=== PATIENT | male | born 1950 | race African-American/Black ===

== ENCOUNTER 2018-03-04 10:34 | Emergency (ER) | payer OTHER ==
[~2018-03-04] VITALS: Ht 182.9 cm; Wt 72.7 kg
[2018-03-04 10:45] VITALS: Ht 182.9 cm; Wt 72.7 kg
[2018-03-04] MEDS ORDERED: ROBAXIN500 MG PO (10:47)
[2018-03-04] MEDS ORDERED: OMEPRAZOLE20 M1 (10:47)
[2018-03-04] MEDS ORDERED: CARDIZEM CD300 MG PO (10:48)
[2018-03-04] MEDS ORDERED: ALAVERT10 MG/TAB PO (10:48)
[2018-03-04] MEDS ORDERED: VOLTAREN75 MG PO (10:48)
[2018-03-04] MEDS ORDERED: HYDROCHLOROTHIA25 MG PO (10:49)
[2018-03-04] MEDS ORDERED: CYMBALTA30 MG PO (10:49)
[2018-03-04 11:05] LABS: BASOPHILS 0.1 % (0-2); EOSINOPHILS 0.7 % (0-7); HEMATOCRIT 44.5 % (42.0-54.0); HEMOGLOBIN 15.6 g/dL (13.5-17.5); IMMATURE GRANULOCYTES 0.2 % (0-5); LYMPHOCYTES 13.2 % (15-50); MCH 28.6 pg (26.0-34.0); MCHC 35.1 g/dL (31.0-37.0); MCV 81.7 fL (80.0-100.0); MONOCYTES 12.3 % (2-11); NEUTROPHILS 73.5 % (40-80); PLATELET COUNT 124 10x3/uL (130-400); RBC 5.45 10x6/uL (4.20-6.10); WBC 8.2 10x3/uL (4.8-10.8)
[2018-03-04 11:16] LABS: INR 1.62 (0.85-1.17); PROTIME 18.7 SECONDS (11.6-15.0)
[2018-03-04 11:18] LABS: D-DIMER-QUANTITATIVE 3.46 ug/mLFEU (0.20-0.54)
[2018-03-04 11:22] LABS: ALBUMIN 3.3 g/dL (3.4-5.0); ALKALINE PHOSPHATASE 228 U/L (46-116); ALT (SGPT) 27 U/L (10-68); BILIRUBIN - TOTAL 2.89 mg/dL (0.2-1.3); CALC OSMOLALITY 276 mosm/kg (275-300); CALCIUM 8.9 mg/dL (8.5-10.1); CARBON DIOXIDE 27.6 mmol/L (21.0-32.0); CHLORIDE - SERUM 97 mmol/L (98-107); CREATININE - SERUM 2.2 mg/dL (0.6-1.3); GLUCOSE 96 mg/dL (74-106); POTASSIUM - SERUM 3.8 mmol/L (3.5-5.1); PROTEIN - SERUM 6.9 g/dL (6.4-8.2); SODIUM 134 mmol/L (136-145); UREA NITROGEN 38 mg/dL (7-18); eGFR NON AFRICAN AMERICAN 32 mL/min (90-120)
[2018-03-04 11:34] LABS: CKMB 1.9 U/L (0.0-3.6); CREATINE KINASE 95 UL (21-232); PRO BNP 19338 pg/mL (0-125); TROPONIN-I 0.018 ng/mL (0.000-0.060)
[2018-03-04 15:17] VITALS: BP 120/85
== END 2018-03-04 15:18 | disposition other institution (70) ==
LOC: D.ER 10:34
PROVIDERS: Family Medicine
DX: R79.89 Other specified abnormal findings of blood chemistry (principal); R60.0 Localized edema; R79.1 Abnormal coagulation profile; J90 Pleural effusion, not elsewhere classified; N28.9 Disorder of kidney and ureter, unspecified; R06.02 Shortness of breath

== ENCOUNTER 2018-06-15 17:40 | Emergency (ER) | payer OTHER ==
[~2018-06-15] VITALS: Ht 182.9 cm; Wt 68.2 kg
[~2018-06-15 17:40] MED LIST: ALAVERT10 MG/TAB PO; CARDIZEM CD300 MG PO; CYMBALTA30 MG PO; HYDROCHLOROTHIA25 MG PO; OMEPRAZOLE20 M1; ROBAXIN500 MG PO; VOLTAREN75 MG PO
[2018-06-15 17:44] VITALS: Ht 182.9 cm; Wt 68.2 kg
[2018-06-15 18:29] LABS: BASOPHILS 0 % (0-2); EOSINOPHILS 0.2 % (0-7); IMMATURE GRANULOCYTES 0.2 % (0-5); LYMPHOCYTES 13.8 % (15-50); MCH 27.9 pg (26.0-34.0); MCHC 30.3 g/dL (31.0-37.0); MCV 92.2 fL (80.0-100.0); MEAN PLATELET VOLUME 9.4 fL (7.4-10.4); MONOCYTES 7.6 % (2-11); NEUTROPHILS 78.2 % (40-80); WBC 6.1 10x3/uL (4.8-10.8)
[2018-06-15 18:47] LABS: HEMOGLOBIN 4.3 g/dL (13.5-17.5); RBC 1.54 10x6/uL (4.20-6.10)
[2018-06-15 18:48] LABS: HEMATOCRIT 14.2 % (42.0-54.0); PLATELET COUNT 200 10x3/uL (130-400)
[2018-06-15 18:55] LABS: ALBUMIN 2.8 g/dL (3.4-5.0); ALKALINE PHOSPHATASE 142 U/L (46-116); ALT (SGPT) 26 U/L (10-68); BILIRUBIN - TOTAL 0.72 mg/dL (0.2-1.3); CALC OSMOLALITY 315 mosm/kg (275-300); CALCIUM 8.6 mg/dL (8.5-10.1); CARBON DIOXIDE 28.9 mmol/L (21.0-32.0); CHLORIDE - SERUM 110 mmol/L (98-107); CREATININE - SERUM 1.3 mg/dL (0.6-1.3); GLUCOSE 109 mg/dL (74-106); POTASSIUM - SERUM 3.3 mmol/L (3.5-5.1); PROTEIN - SERUM 5.9 g/dL (6.4-8.2); SODIUM 148 mmol/L (136-145); UREA NITROGEN 70 mg/dL (7-18); eGFR NON AFRICAN AMERICAN 58 mL/min (90-120)
[2018-06-15 19:07] LABS: CKMB 1.2 U/L (0.0-3.6); CREATINE KINASE 97 UL (21-232); MAGNESIUM - SERUM 1.9 mg/dL (1.8-2.4); TROPONIN-I 0.056 ng/mL (0.000-0.060)
[2018-06-15 19:10] LABS: APTT 29.8 SECONDS (22.8-39.4)
[2018-06-15 19:19] LABS: INR 1.58 (0.85-1.17); PROTIME 18.6 SECONDS (11.6-15.0)
[2018-06-15 19:42] LABS: % SATURATION 11 % (15-55); IRON 27 ug/dl (35-150); TOTAL IRON BIND CAPACITY 236 ug/dl (260-445); UNSAT IRON BIND CAPACITY 209 ug/dl (150-375)
[2018-06-15 19:58] LABS: FERRITIN 136 ng/mL (3-244); LDH 142 U/L (85-227)
[2018-06-15 23:02] VITALS: BP 113/84
== END 2018-06-15 23:03 | disposition other institution (70) ==
LOC: D.ER 17:40
PROVIDERS: Family Medicine
DX: R53.1 Weakness (principal); N28.9 Disorder of kidney and ureter, unspecified; D64.9 Anemia, unspecified; E86.0 Dehydration; E87.0 Hyperosmolality and hypernatremia; J90 Pleural effusion, not elsewhere classified; D49.0 Neoplasm of unspecified behavior of digestive system; R11.0 Nausea; I10 Essential (primary) hypertension; I49.3 Ventricular premature depolarization